=== PATIENT | male | born 1960 ===

== ENCOUNTER 2016-07-22 17:05 | Emergency (ER) | payer OTHER, BC ==
[2016-07-22 17:26] VITALS: TEMP 98.8
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
[2016-07-22 18:55] VITALS: BP 139/75; PULSE 98; RESP 18
[2016-07-22 21:19] VITALS: O2SAT 97
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
== END 2016-07-22 18:51 | disposition home or self-care (01) ==
LOC: C.ER 17:05
DX: S13.4XXA Sprain of ligaments of cervical spine, initial encounter (principal); V89.2XXA Person injured in unspecified motor-vehicle accident, traffic, initial encounter